=== PATIENT | male | born 2000 | race Caucasian/White ===

== ENCOUNTER 2022-09-07 02:25 | Emergency (ER) | payer OTHER ==
[~2022-09-07] VITALS: Ht 182.9 cm; Wt 90.7 kg
--- NOTE | 2022-09-07 02:25 | NUR ---
MELANI ALS TO BED 12.
[2022-09-07 02:29] VITALS: BP 139/79; PULSE 91; RESP 16; TEMP 98.2; O2SAT 97
[2022-09-07 03:20] VITALS: TEMP 98.2
--- NOTE | 2022-09-07 03:30 | NUR ---
AMBULATED TO BR WITH STEADY GAIT
[2022-09-07] MEDS ORDERED: NALO4SPR NS (04:09)
[2022-09-07 05:10] VITALS: BP 100/57; PULSE 60; RESP 12; O2SAT 97
--- NOTE | 2022-09-07 05:20 | NUR ---
Patient discharged with v/s stable. Written and verbal after care instructions given and explained. Patient alert, oriented and verbalized understanding of instructions. Ambulatory with steady gait. All questions addressed prior to discharge. ID band removed. Patient advised to follow up with PMD. Rx of Naloxone given. Patient educated on indication of medication including possible reaction and side effects. Opportunity to ask questions provided and answered.
== END 2022-09-07 05:20 | disposition home or self-care (01) ==
LOC: MED 02:25
DX: T40.604A Poisoning by unspecified narcotics, undetermined, initial encounter (principal); F90.9 Attention-deficit hyperactivity disorder, unspecified type; Z79.899 Other long term (current) drug therapy; Z88.0 Allergy status to penicillin; Y92.89 Other specified places as the place of occurrence of the external cause
CPT/HCPCS: 99283